=== PATIENT | female | born 1940 | race Caucasian/White ===

== ENCOUNTER 2016-12-10 18:56 | Emergency (ER) | payer MEDICARE, OTHER ==
[2016-12-10 19:33] LABS: BASOPHIL 0.2 % (0-2); EOSINOPHIL 0.9 % (0-7); HCT 43.1 % (37.0-47.0); HGB 13.5 g/dl (12.5-16.0); LYMPHOCYTE 18.5 % (15-48); MCH 29.7 pg (25.0-31.0); MCHC 31.3 g/dL (32.0-36.0); MCV 94.9 fL (78.0-100.0); MONOCYTE 10.6 % (0-12); MPV 9.7 fL (6.0-9.5); NEUTROPHIL 69.8 % (41-80); PLT 335 K/uL (150-400); RBC 4.54 M/uL (4.20-5.40); RDW 14.6 % (11.5-14.0); WBC 10.3 K/uL (4.0-10.5)
[2016-12-10 19:48] LABS: INR 0.95 (0.9-1.2); PROTHROMBIN TIME 12.3 SECONDS (11.7-14.0); PTT 33.2 SECONDS (23.2-31.4)
[2016-12-10 19:49] LABS: D-DIMER 0.27 ug/mLFEU (0.00-0.41)
[2016-12-10 19:50] LABS: BILIRUBIN - TOTAL 0.3 mg/dL (0.1-1.0); CREATININE 1.1 mg/dL (0.5-1.0); POTASSIUM 4.7 mmol/L (3.5-5.1)
[2016-12-10 19:52] LABS: CKMB 3.23 ng/mL (0.97-4.94); TROPONIN T < 0.010 ng/mL
[2016-12-10 19:53] LABS: PRO-BNP 629 pg/mL (0-450)
== END 2016-12-10 21:46 | disposition home or self-care (01) ==
LOC: FER 18:56
PROVIDERS: Emergency Medicine Emergency Medical Services
DX: F41.8 Other specified anxiety disorders (principal); E86.9 Volume depletion, unspecified; I10 Essential (primary) hypertension; G89.29 Other chronic pain; M54.9 Dorsalgia, unspecified; F17.210 Nicotine dependence, cigarettes, uncomplicated; Z79.891 Long term (current) use of opiate analgesic
CPT/HCPCS: 36415; 36600; 71010; 80053; 82550; 82553; 82803; 83880; 84484; 85025; 85379; 85610; 85730; 87040; 93005; 94640; 94760; J2060; J2930

== ENCOUNTER 2021-09-23 10:34 | Emergency (ER) | payer OTHER ==
[2021-09-23 12:01] LABS: BASOPHIL 0.5 % (0-2); EOSINOPHIL 3.1 % (0-7); HCT 33.6 % (37.0-47.0); HGB 10.5 g/dl (12.5-16.0); LYMPHOCYTE 13.8 % (15-48); MCH 28.8 pg (25.0-31.0); MCHC 31.3 g/dL (32.0-36.0); MCV 92.3 fL (78.0-100.0); MONOCYTE 7.6 % (0-12); MPV 9.5 fL (6.0-9.5); NEUTROPHIL 74.5 % (41-80); NRBC 0; PLT 254 K/uL (150-400); RBC 3.64 M/uL (4.20-5.40); RDW 14.1 % (11.5-14.0); WBC 7.6 K/uL (4.0-10.5)
[2021-09-23 12:28] LABS: BUN/CREAT RATIO (CALC) 13.5 RATIO; CREATININE 1.93 mg/dL (0.51-0.95)
== END 2021-09-23 13:53 | disposition home or self-care (01) ==
LOC: FER 10:34
PROVIDERS: Emergency Medicine
DX: J04.0 Acute laryngitis (principal); I12.9 Hypertensive chronic kidney disease with stage 1 through stage 4 chronic kidney disease, or unspecified chronic kidney disease; N18.9 Chronic kidney disease, unspecified; J44.9 Chronic obstructive pulmonary disease, unspecified; Z88.8 Allergy status to other drugs, medicaments and biological substances
CPT/HCPCS: 36415; 71045; 80048; 85025

== ENCOUNTER 2021-09-30 17:51 | Emergency (ER) | payer OTHER ==
[2021-09-30 18:42] LABS: BASOPHIL 0.5 % (0-2); EOSINOPHIL 3.6 % (0-7); HCT 33.3 % (37.0-47.0); HGB 10.5 g/dl (12.5-16.0); LYMPHOCYTE 19.7 % (15-48); MCH 29.5 pg (25.0-31.0); MCHC 31.5 g/dL (32.0-36.0); MCV 93.5 fL (78.0-100.0); MONOCYTE 7.8 % (0-12); MPV 9.8 fL (6.0-9.5); NRBC 0; PLT 314 K/uL (150-400); RBC 3.56 M/uL (4.20-5.40); RDW 14.1 % (11.5-14.0); WBC 7.3 K/uL (4.0-10.5)
[2021-09-30 18:59] LABS: BILIRUBIN NEGATIVE (NEGATIVE); BLOOD NEGATIVE Ery/uL (NEGATIVE); CLARITY CLEAR (CLEAR); COLOR YELLOW (YELLOW); GLUCOSE (U) NORMAL (NORMAL); LEUKOCYTES 1+ Leu/uL (NEGATIVE); NITRITE NEGATIVE (NEGATIVE); PROTEIN NEGATIVE (NEGATIVE); SPECIFIC GRAVITY 1.015 (1.001-1.030); UROBILINOGEN 0.2 mg/dL (0.2-1.0)
[2021-09-30 19:04] LABS: AMPHETAMINES NEGATIVE (NEGATIVE); BARBITURATES NEGATIVE (NEGATIVE); ECSTASY (MDMA) NEGATIVE (NEGATIVE); MARIJUANA (THC) NEGATIVE (NEGATIVE); METHADONE NEGATIVE (NEGATIVE); OPIATES NEGATIVE (NEGATIVE); OXYCODONE NEGATIVE (NEGATIVE)
[2021-09-30 19:19] LABS: CORONAVIRUS 2019 SARS-COV-2 NEGATIVE (NEGATIVE); INFLUENZA A NAA NEGATIVE (NEGATIVE)
[2021-09-30 19:27] LABS: ALBUMIN 3.4 g/dL (3.4-5.0); ALKALINE PHOSHATASE 60 U/L (46-116); ALT 17 U/L (14-59); AST 7 U/L (15-37); BILIRUBIN - TOTAL 0.1 mg/dL (0.2-1.0); BUN 32 mg/dL (7-18); BUN/CREAT RATIO (CALC) 14.8 RATIO; CHLORIDE 103 mmol/L (98-107); CO2 (BICARBONATE) 30 mmol/L (21-32); CREATININE 2.16 mg/dL (0.51-0.95); GLOBULIN (CALCULATION) 3.7 g/dL; GLUCOSE 137 mg/dL (74-106); POTASSIUM 4.6 mmol/L (3.5-5.1); TOTAL PROTEIN 7.1 g/dL (6.4-8.2)
[2021-09-30 19:28] LABS: ACETAMINOPHEN (TYLENOL) < 2.0 ug/mL (10.0-30.0)
[2021-09-30 19:31] LABS: BACTERIA TRACE; TRANSITIONAL EPITHELIAL CELLS RARE
== END 2021-10-01 00:30 | disposition home or self-care (01) ==
LOC: FER 17:51
PROVIDERS: Emergency Medicine
DX: F33.1 Major depressive disorder, recurrent, moderate (principal); R45.851 Suicidal ideations; I13.0 Hypertensive heart and chronic kidney disease with heart failure and stage 1 through stage 4 chronic kidney disease, or unspecified chronic kidney disease; N18.9 Chronic kidney disease, unspecified; I50.9 Heart failure, unspecified; J44.9 Chronic obstructive pulmonary disease, unspecified; F25.9 Schizoaffective disorder, unspecified; Z87.891 Personal history of nicotine dependence; Z88.8 Allergy status to other drugs, medicaments and biological substances; Z20.822 Contact with and (suspected) exposure to COVID-19
CPT/HCPCS: 36415; 80053; 80305; 81001; 85025; 99285; G0480; U0002